=== PATIENT | male | born 1975 | race Caucasian/White ===

== ENCOUNTER 2017-07-14 15:59 | Inpatient (IN) ==
--- OUTSIDE RECORDS SUMMARY | 2017-07-14 16:25 | External Medical Summary | Referral Summary ---
:1975 Author Organization [facility], [facility] Address [address] [place] [address] [place] [id number] Care Team Providers Name Role Phone GriseldaEliot amador Sparkle Primary Care Physician Encounter VC Date(s): 02/23/16 - 02/23/16 [facility], [address] [place] [id number]- Discharge Diagnosis: Diarrhea Discharge Disposition: 01-Home or Self Care Attending Physician: Chaz Springer PA-C Admitting Physician: Chaz Springer PA-C Vital Signs Most recent to oldest [Reference Range]: 1 Temperature Tympanic [36.6-38.1 degC] 36.8 degC (02/23/16 5:58 PM) Peripheral Pulse Rate [60-100 bpm] 102 bpm *HI* (02/23/16 5:58 PM) Blood Pressure [90-140/60-90 mmHg] 144/78 mmHg *HI* (02/23/16 5:58 PM) SpO2 98 % (02/23/16 5:58 PM) Problem List Condition Effective Dates Status Health Status Informant Abdominal pain in male(Confirmed) Active Hydrocele unspecified(Confirmed) Active Obesity(Confirmed) Active patient Orchitis and epididymitis, Active unspecified(Confirmed) Allergies, Adverse Reactions, Alerts Substance Reaction Severity Status Bactrim Active penicillin Unknown Active sulfamethoxazole itching hives Active trimethoprim itching hives Active Medications atorvastatin Oral, Daily, 0 Refill(s) Start Date: 02/23/16 Status: OrderedEffexor XR 75 mg oral capsule, extended release 1 caps, Oral, Daily, # 30 caps, 0 Refill(s) Start Date: 07/29/13 Status: Orderedlisinopril 20 mg oral tablet 1 tabs, Oral, Daily, # 30 tabs, 0 Refill(s) Start Date: 07/29/13 Status: Ordered Results No data available for this section Immunizations Given and Recorded Vaccine Date Status Refusal Reason tetanus/diphth/pertuss (Tdap) adult/adol 04/17/09 Recorded Procedures No data available for this section Social History Social History Type Response Smoking Status Never smoker Assessment and Plan Extracted from: Title: Ambulatory Patient Education Author: Hetal Mckeon RN Date: Emergency Medicine Diarrhea Diarrhea is frequent loose and watery bowel movements. It can cause you to feel weak and dehydrated. Dehydration can cause you to become tired and thirsty , have a dry mouth, and have decreased urination that often is dark yellow. Diarrhea is a sign of another problem, most often an infection that will not last long. In most cases, diarrhea typically lasts 2 3 days. However, it can last longer if it is a sign of something more serious. It is important to treat your diarrhea as directed by your caregiver to lessen or prevent future episodes of diarrhea. CAUSES Some common causes include: Gastrointestinal infections caused by viruses, bacteria, or parasites. Food poisoning or food allergies. Certain medicines, such as antibiotics, chemotherapy, and laxatives. Artificial sweeteners and fructose. Digestive disorders. HOME CARE INSTRUCTIONS Ensure adequate fluid intake (hydration): Have 1 cup (8 oz) of fluid for each diarrhea episode. Avoid fluids that contain simple sugars or sports drinks, fruit juices, whole milk products, and so woo. Your urine should be clear or pale yellow if you are drinking enough fluids. Hydrate with an oral rehydration solution that you can purchase at pharmacies, retail stores, and online. You can prepar e an oral rehydration solution at home by mixing the following ingredients together: tsp table salt. tsp baking soda. tsp salt substitute containing potassium chloride. 1 tablespoons sugar. 1 L (34 oz) of water. Certain foods and beverages may increase the speed at which food moves through the gastrointestinal (GI) tract. These foods and beverages should be avoided and include: Caffeinated and alcoholic beverages. High-fiber foods, such as raw fruits and vegetables, nuts, seeds, and whole grain breads and cereals. Foods and beverages sweetened with sugar alcohols, such as xylitol, sorbitol, and mannitol. Some foods may be well tolerated and may help thicken stool including: Starchy foods, such as rice, toast, pasta, low-sugar cereal, oatmeal, grits, baked potatoes, crackers, and bagels. Bananas. Applesauce. Add probiotic-rich foods to help increase healthy bacteria in the GI tract, such as yogurt and fermented milk products. Wash your hands well after each diarrhea episode. Only take zakn-wei-zfggjss or prescription medicines as directed by your caregiver. Take a warm bath to relieve any burning or pain from frequent diarrhea episodes. SEEK IMMEDIATE MEDICAL CARE IF: You are unable to keep fluids down. You have persistent vomiting. You have blood in your stool, or your stools are black and tarry. You do not urinate in 68 hours, or there is only a small amount of very dark urine. You have abdominal pain that increases or localizes. You have weakness, dizziness, confusion, or light-headedness. You have a severe headache. Your diarrhea gets worse or does not get better. You have a fever or persistent symptoms for more than 23 days. You have a fever and your symptoms suddenly get worse. MAKE SURE YOU: Understand these instructions. Will watch your condition. Will get help right away if you are not doing well or get worse. This information is not intended to replace advice given to you by your health care provider. Make sure you discuss any questions you have with your health care provider. Document Released: 01/24/2003 Document Revised: 02/24/2015 Document Reviewed: 10/11/2012 [employer] Patient Education 2016 [employer] No follow up information was provided. Extracted from: Title: nausea diarrhea Author: Chaz Springer PA-C Date: 02/23/16 Assessment/Plan Abdominal pain in male Discussed acute abdomen;if he develops signs follow-up in ER. patient was given handouts. Recommend watchful waiting. Practice good hand hygiene.Adequate fluids. FU with PCP if not improving, worsening symptoms, or as needed. Questions were answered. Patient verbalized understanding. Patient left in stable condition. Diarrhea Recommended adequate fluid intake,Imodium [id number] mgmax dose 14 mg per 24 hours. If diarrhea persists 2-3 weeks or if blood in stool, dehydration, follow-up for reassessment. Handout on diarrheaprovided.
--- OUTSIDE RECORDS SUMMARY | 2017-07-14 16:25 | External Medical Summary | Referral Summary ---
:1975 Author Organization [facility], [facility] Address [address] [place] [address] [place] [id number] Care Team Providers Name Role Phone Griseldaperry Eliot Sparkle Primary Care Physician Encounter VC Date(s): 02/16/15 - 02/16/15 [facility], [address] [place] [id number] [place] Discharge Diagnosis: Headache Discharge Diagnosis: Nasal congestion Discharge Diagnosis: Acute URI Discharge Disposition: 01-Home or Self Care Attending Physician: Chaz Springer PA-C Admitting Physician: Chaz Springer PA-C Vital Signs Most recent to oldest [Reference Range]: 1 Temperature Tympanic [36.6-38.1 degC] 37.0 degC (02/16/15 2:51 PM) Apical Heart Rate [60-100 bpm] 96 bpm (02/16/15 2:51 PM) Blood Pressure [90-140/60-90 mmHg] 132/84 mmHg (02/16/15 2:51 PM) SpO2 99 % (02/16/15 2:51 PM) Problem List No data available for this section Allergies, Adverse Reactions, Alerts Substance Reaction Severity Status penicillin Unknown Active sulfamethoxazole itching hives Active trimethoprim itching hives Active Medications Effexor XR 75 mg oral capsule, extended release 1 caps, Oral, Daily, # 30 caps, 0 Refill(s) Start Date: 07/29/13 Status: Orderedlisinopril 20 mg oral tablet 1 tabs, Oral, Daily, # 30 tabs, 0 Refill(s) Start Date: 07/29/13 Status: OrderedpredniSONE 5 mg oral tablet 5 mg 1 tabs, Oral, Daily, X 5 days, # 5 tabs, 0 Refill(s), called to pharmacy ( Rx) Start Date: 02/16/15 Stop Date: 02/21/15 Status: Ordered Results No data available for this section Immunizations No data available for this section Procedures No data available for this section Social History Social History Type Response Smoking Status Never smoker Assessment and Plan Extracted from: Title: headache, sore throat Author: Chaz Springer PA-C Date: 02/16/15 Assessment/Plan Acute URI Work note was given. Recommend supportive care. Rest. Practice good hand hygiene. Increase fluids. Okay to use hcco-eep-[id number] cough and cold medication as needed. Tylenol/Ibuprofen as needed for fever or pain. FU with PCP if not improving, worsening symptoms, or as needed. Questions were answered. Patient verbalized understanding. Patient left in stable condition. Headache Toradol 60 mg IM. She was observed 15 minutes after the injection vital signs are stable and he was discharged. Nasal congestion [id number] 5 days. She is unable to take decongestants due to his hypertension. Orders: predniSONE, 5 mg 1 tabs, Oral, Daily, X 5 days, # 5 tabs, 0 Refill(s) , called to pharmacy (Rx)
[2017-07-14] MEDS ORDERED: MORPHINE SULFATE 2mg INJECTION IVP ONE ×2 (16:47→18:39)
[2017-07-14] MEDS ORDERED: METOCLOPRAMIDE 10mg/2ml INJECTION IVP ONE (16:47)
[2017-07-14] MEDS ORDERED: NS 1,000 ML IV ONE (16:48)
[2017-07-14] MEDS: SALINE FLUSH 10ml SYRINGE IVF PRN (17:09)
--- NOTE | 2017-07-14 17:27 | Emergency Department Report ---
Abdominal Pain HPI - General Chief Complaint: Abdominal Pain Stated Complaint: Right abdominal pain Source: patient Mode of arrival: ambulatory Limitations: no limitations - History of Present Illness HPI narrative: PT presents with a complaint of epigastric and RUQ pain that started about 2 days ago. PT has had normal eating habits. He did have an episode of vomiting yesterday. Denies diarrhea or known fever. He denies chest pain, diaphoresis, or SOA. Pain does not change with PO intake. No difficulty urinating MD complaint: abdominal pain Onset (ago): day(s) Consistency: constant Location: RUQ, epigastric Severity: moderate Quality: cramping, stabbing - Related Data Home Medications Medication Instructions Recorded Confirmed Venlafaxine [Effexor] 75 mg PO DAILY #0 02/05/16 07/14/17 Lisinopril [Zestril] 40 mg PO DAILY 07/14/17 07/14/17 Allergies Allergy/AdvReac Type Severity Reaction Status Date / Time Penicillins Allergy Unknown Verified 07/14/17 16:18 sulfamethoxazole Allergy Unknown Verified 07/14/17 16:18 trimethoprim Allergy Unknown Verified 07/14/17 16:18 Review of Systems All systems: reviewed and negative except as stated Constitutional: Reports: as per HPI Cardiovascular: Reports: as per HPI Gastrointestinal: Reports: as per HPI Genitourinary: Reports: as per HPI [facility] Patient Stated Medical History Hypertension Yes Depression Yes Clinic Medical History (Last Reviewed 02/16/17 @ 17:16 by RUEL Chandra) Depression (Chronic Medical) Anxiety (Chronic Medical) Hypertension (Chronic Medical) Surgical History: *None Family History: Family History (Last Reviewed 02/16/17 @ 17:16 by RUEL Chandra) Unknown Diabetes - Social History Smoking status: Never smoker second hand exposure: Yes Substance use type: does not use Alcohol intake: current Alcohol intake frequency: holidays/special occasions only Physical Exam - Limitations Limitations: no limitations - General General appearance: alert, in no apparent distress - Normal Exams: Head:: Normocephalic without trauma Chest/Respirations:: Clear all coughlin, with good airflow, and symmetry bilaterally Cardiovascular:: Regular rate and rhythm, without murmur or gallop, Pulses 2+ all extremities, capillary refill, <2 seconds all extremities Abdomen:: Bowel sounds positive (hypoactive), soft, non-tender Musculoskeletal:: No tenderness, or deformity noted, good range of motion, all extremities Integumentary:: No rashes Neurological:: Patient is alert, and oriented, cranial nerves, motor/sensory/ cerebellar, exams w/o gross deficits, to observation Psychiatric:: Patient exhibits, appropriate attention, emotion and affect Course Vital Signs Temperature 100.4 F 07/14/17 16:05 Pulse Rate 91 07/14/17 16:05 Respiratory Rate 18 07/14/17 16:05 Blood Pressure 170/93 H 07/14/17 16:05 Pulse Oximetry 99 07/14/17 16:05 Temperature 100.4 F 07/14/17 16:05 Pulse Rate 91 07/14/17 16:05 Respiratory Rate 20 07/14/17 17:11 Blood Pressure 170/93 H 07/14/17 16:05 Pulse Oximetry 99 07/14/17 16:05 Abdominal Pain - MDM Narrative Medical decision making narrative: PT WBC of 17 with mild shift, in addition to CT findings and assessment consistent with acute cholecystitis. Pt bailon improvement of pain with Morphine. Findings discussed with Dr Barriga who will admit. Pt agrees to treatment and plan. Dr Barriga at bedside. - Differential Diagnosis Differential diagnosis: Likely: abdominal pain, acute appendicitis, constipation , diverticulitis, gastroenteritis - Lab Data Result diagrams: 07/15/17 04:21 07/15/17 04:21 Lab Results 07/14/17 07/14/17 07/14/17 Range/Units 17:05 17:05 17:06 WBC 17.2 H (4.5-11.0) T/MM3 RBC 5.14 (4.50-5.90) M/MM3 Hgb 16.3 (13.5-17.5) GM/DL Hct 45.3 (41-53) % MCV 88.1 (80-100) UM3 MCH 31.7 (26-34) UUG MCHC 36.0 (31-37) GM/DL RDW Std Deviation 40.0 (36.9-50.2) FL Plt Count 251 (130-400) T/MM3 MPV 9.8 (9.4-12.4) UM3 Immature Gran % (Auto) Not performed Neut % (Auto) Not performed Lymph % (Auto) Not performed [place] % (Auto) Not performed Eos % (Auto) Not performed Baso % (Auto) Not performed Neut # (Auto) Not performed Lymph # (Auto) Not performed [place] # (Auto) Not performed Eos # (Auto) Not performed Baso # (Auto) Not performed Abs Immat Gran (auto) Not performed Turbidity < 20 (0-20) Sodium 144 (134-144) MEQ/L Potassium 3.6 (3.6-5) MEQ/L Chloride 102 (98-107) MEQ/L Carbon Dioxide 27 (22-30) MEQ/L Anion Gap 15 (5-15) meq/L BUN 11.0 (9-20) MG/DL Creatinine 0.8 (0.8-1.5) mg/dL GFR Calculation 107 BUN/Creatinine Ratio 14 (6-26) RATIO Glucose 151 H (75-110) MG/DL Calculated Osmolality 279 (261-280) MOSM/KG Calcium 9.4 (8.4-10.2) MG/DL Total Bilirubin 0.90 (0.20-1.30) MG/DL Icterus Index < 2 (0-7) AST 29 (17-59) U/L ALT 36 (1-50) U/L Alkaline Phosphatase 81 (38-126) U/L Total Protein 8.1 (6.3-8.2) g/dL Albumin 4.8 (3.5-5.0) g/dL Globulin 3.3 (2.4-3.6) G/DL Albumin/Globulin Ratio 1.5 (1.1-2.2) RATIO Specimen Hemolysis < 15 (0-25) Ur Collection Type Urine, void-cc/notcc Urine Color Yellow (YELLOW) Urine Clarity Clear Urine pH 6.0 (5.0-8.0) Ur Specific [place] >=1.030 H (1.015-1.025) Urine Protein Negative (NEGATIVE) Urine Glucose (UA) Trace A (NEGATIVE) Urine Ketones Negative (NEGATIVE) Urine Occult Blood Negative (NEGATIVE) Urine Nitrate Negative (NEGATIVE) Urine Bilirubin Negative (NEGATIVE) Urine Urobilinogen 0.2 (NORMAL) EU/DL Ur Leukocyte Esterase Negative (NEGATIVE) Urinalysis Comment Microscopic not ind. - Radiology Data Attestation: I reviewed the patient's radiology results. (acute cholecystitis and suggestion of partial small bowel obstruction) Disposition Clinical Impression: Acute cholecystitis Disposition: 02 To [facility] Acute Care Condition: Improved Time of Disposition: 19:36 - Seen By: midlevel
[2017-07-14] MEDS ORDERED: SALINE FLUSH 10ml SYRINGE ONE (17:31)
[2017-07-14] MEDS ORDERED: IOHEXOL 300mg/ml 100ml INJECTION ONE (17:31)
[2017-07-14 20:18] VITALS: BMI 34.9
[2017-07-14] MEDS ORDERED: ONDANSETRON 4 MG/2 ML INJECTION IVP PRN (20:34)
[2017-07-14] MEDS ORDERED: PROMETHAZINE 25 MG INJECTION IVP PRN (20:34)
[2017-07-14] MEDS: MORPHINE SULFATE 10mg/ml INJECTION IV PRN (20:39)
[2017-07-14] MEDS: D5-1/2NS with KCL 20mEq 1,000 ML IV SCH (20:40)
[2017-07-14] MEDS: ERTAPENEM 1 G in NS 100 ML IV SCH (21:10)
[2017-07-15] MEDS: MORPHINE SULFATE 10mg/ml INJECTION IV PRN ×2 (02:44→10:25)
[2017-07-15] MEDS: D5-1/2NS with KCL 20mEq 1,000 ML IV SCH ×2 (04:10→18:23)
--- NOTE | 2017-07-15 06:25 | History and Physical ---
HISTORY OF PRESENT ILLNESS This patient is 41 years old. This patient developed the onset of some epigastric and right upper quadrant abdominal pain on the morning of 2017. This pain did localize more and more to the right upper quadrant of the abdomen as the day progressed. The patient had some nausea and vomiting associated with this pain on 07/13/2017. The patient had no diarrhea. The right upper quadrant abdominal pain for the patient was worse on 2017. He has had no further nausea or vomiting on 07/14/2017. He has had no diarrhea. The patient did last eat some food at 3:00 p.m. on 07/14/2017. The patient came to [facility] Emergency Room late on the afternoon or early on the evening of 07/14/2017 for evaluation because the right upper quadrant abdominal pain was persisting. The pain was localized to the right upper quadrant of the abdomen. The patient did have a CT scan of the abdomen and pelvis performed at [facility] Emergency Room. This does show a gallstone at the proximal gallbladder. There is trace of pericholecystic stranding which could represent some early acute cholecystitis. There was no bile duct dilation demonstrated anywhere. There was no gallbladder wall thickening. The radiologist did see a few mildly distended small bowel loops at the midabdomen suggesting partial small bowel obstruction. The patient was also found to have a leukocytosis at the emergency room with a white blood cell count of 17,200 along with a left shift of the differential. It was thought the patient might have acute cholecystitis. The patient is being admitted to [facility] at this time for further evaluation and treatment. PAST MEDICAL HISTORY Previous Operations: None. Other Current Medical Problems: 1. Hypertension. 2. Depression. CURRENT MEDICATIONS 1. Lisinopril 40 mg one p.o. daily. 2. Effexor 75 mg one p.o. daily. ALLERGY HISTORY 1. The patient states that he is allergic to penicillin. He does not know what type of reaction he had to penicillin. He has just been told since he was a young child that he had some type of allergy to penicillin. 2. The patient states that Bactrim causes hives and itching. SOCIAL HISTORY The patient does not smoke cigarettes. The patient lives in [place], [place]. The patient is . PHYSICAL EXAMINATION VITAL SIGNS: Temperature is 101.2 degrees Fahrenheit oral. Pulse is 93. Respiratory rate is 18. Blood pressure is 152/89. Oxygen saturation is 95% on room air. Height is 1.73 meters. Weight 103.9 kg. BMI is 34.8 kg/m2. HEAD, EYES, EARS, NOSE AND THROAT: No abnormalities noted. NECK: No neck masses. CHEST: Lung sounds are clear. HEART: Regular rhythm. No murmurs. ABDOMEN: The patient does have well-localized right subcostal abdominal tenderness. The tenderness seems moderate to severe. The abdomen is soft. There are no old incision scars. RECTUM: Exam deferred. EXTREMITIES: No abnormalities noted.. LABORATORY DATA White blood cell count is 17,200 with 82% neutrophils and 13% lymphocytes. There are no bands. Hemoglobin is 16.3. Hematocrit is 45.3. Liver function tests are all normal. Lipase is normal. Serum electrolytes are normal. IMAGING DATA The patient did undergo a CT scan of the abdomen and pelvis on 07/14/2017. This does show a 2.5 mm calcified gallstone in the region of the proximal gallbladder. There is no gallbladder wall thickening. There is a trace of pericholecystic stranding which could represent early acute cholecystitis. There is no biliary ductal dilation anywhere. The CT scan does show a few mildly distended small bowel loops at the midabdomen measuring up to 2.8 cm in caliber suggesting partial small bowel obstruction. IMPRESSION 1. Probable acute cholecystitis and cholelithiasis. 2. Hypertension. 3. Depression. PATIENT EDUCATION I did inform the patient and his and his mother of the nature of treatment for acute cholecystitis and cholelithiasis. I did explain to them the nature of a multiport robotic laparoscopic cholecystectomy operation. Expected benefits of the operation were reviewed. Alternatives were reviewed including medical treatment with antibiotic treatment alone. Potential risks and complications were reviewed including anesthetic risk, bleeding, infection, poor wound healing, bile leak and injury to intraabdominal structures such as the liver, the common duct, the duodenum and loops of large and small intestine. The patient and his family were informed that any laparoscopic cholecystectomy operation might need to be converted over to an open laparotomy with cholecystectomy operation. Questions were solicited from the patient. The patient does appear understand. He does wish to proceed. PLAN Admit patient to [facility] at this time. The patient will be kept n.p.o. The patient will be given intravenous fluids. The patient will be given intravenous antibiotics. The patient will be given analgesics and antiemetics intravenously to provide comfort. After the patient has been n.p.o. for an appropriate period of time, he will go the operating room to undergo multiport robotic laparoscopic cholecystectomy for treatment of acute cholecystitis and cholelithiasis. MANNIE
--- NOTE | 2017-07-15 07:35 | CT Scan Report ---
Indication: epigastric and RUQ pain, low grade temp PROCEDURE: CT abdomen pelvis w con: Encounter: Initial Comparison: None Technique: Axial CT images were performed through the abdomen and pelvis after the administration of intravenous contrast. Coronal and sagittal two-dimensional reformats. Automated Exposure Control and Iterative Reconstruction dose reducing techniques were utilized. Contrast: Omnipaque 300 95 mL Findings: Mild atelectasis in the right lower lobe. Fatty infiltration of the liver without enhancing mass or bile duct dilatation. The gallbladder is distended with some stranding of the adjacent fat and a gallstone seen in the gallbladder neck region. The spleen, pancreas and adrenal glands are within normal limits. Bilateral renal cysts. No abdominal or pelvic adenopathy. Bladder is normal. No free fluid or free air. There are fecalized loops of borderline dilated small bowel with central abdomen that could represent a partial small bowel obstruction. The appendix is normal. Bone windows show no acute findings. Impression: 1. Possible acute cholecystitis. Recommend ultrasound for further evaluation. 2. Possible partial small bowel obstruction versus slow motility. There is a preliminary report by [facility]. .
[2017-07-15] MEDS: ERTAPENEM 1 G in NS 100 ML IV SCH (08:35)
[2017-07-15] MEDS ORDERED: BUPIVACAINE 0.25% (2.5mg/ml) PF 30ml INJECTION ONE (09:18)
[2017-07-15] MEDS ORDERED: INDOCYANINE GREEN 25mg INJECTION ONE (09:18)
[2017-07-15] MEDS ORDERED: SALINE FLUSH 10ml SYRINGE ONE (09:19)
[2017-07-15] MEDS ORDERED: LR 1,000 ML IV SCH (12:00)
[2017-07-15] MEDS: SALINE FLUSH 10ml SYRINGE IVF PRN (12:25)
[2017-07-15] MEDS ORDERED: BUPIVACAINE 0.25% (2.5mg/ml) PF 30ml INJECTION ID ONE (12:40)
[2017-07-15] MEDS ORDERED: SALINE FLUSH 10ml SYRINGE IV ONE (12:40)
[2017-07-15] MEDS ORDERED: INDOCYANINE GREEN 25mg INJECTION IVP PRN (12:40)
--- NOTE | 2017-07-15 13:04 | Anesthesia Preoperative Report ---
Anesthesia Preoperative Record - Date and Time Date: 07/15/17 Preoperative Diagnosis: Right abdominal pain Proposed Procedure: Robot Lap Choley NPO Since Date: 07/15/17 NPO Since Time: 00:00 Allergies/Adverse Reactions: Allergies Allergy/AdvReac Type Severity Reaction Status Date / Time Penicillins Allergy Unknown Verified 07/14/17 16:18 sulfamethoxazole Allergy Unknown Verified 07/14/17 16:18 trimethoprim Allergy Unknown Verified 07/14/17 16:18 - Vital Signs Vital Signs: Temperature 102.4 F H 07/15/17 07:55 Pulse Rate 98 07/15/17 12:17 Respiratory Rate 18 07/15/17 10:25 Blood Pressure 149/93 H 07/15/17 07:55 Pulse Oximetry 92 07/15/17 07:55 Height and Weight: Height 5 ft 8 in Weight 103.5 kg Body Mass Index 34.9 - Medications Inpatient Medications: Current Medications Ertapenem 1 g/ Sodium Chloride 100 mls @ 200 mls/hr IV DAILY [facility] Last Infusion: 07/15/17 09:08 Dose: Infused Potassium Chloride/Dextrose/Sod Cl (D5-1/2ns With Kcl 20meq Premix) 1,000 mls @ 125 mls/hr IV .Q8H [facility] Last Infusion: 07/15/17 12:00 Dose: 0 mls/hr Lactated Ringer's (Lactated Ringers) 1,000 mls @ 50 mls/hr IV .Q20H [facility] Last Admin: 07/15/17 12:24 Dose: 50 mls/hr Indocyanine Green (Ic-Green) 5 mg IVP PRN PRN Morphine Sulfate (Morphine Sulfate Inj) 2 - 5 mg IV Q1H PRN PRN Reason: Pain Last Admin: 07/15/17 10:25 Dose: 5 mg Ondansetron HCl (Zofran) 4 - 8 mg IVP Q6H PRN PRN Reason: Nausea &/or vomiting Promethazine HCl (Phenergan Inj) 12.5 - 25 mg IVP Q6H PRN PRN Reason: Nausea &/or vomiting Sodium Chloride (Iv Flush) 10 - 80 ml IVF PRN PRN PRN Reason: Flushing Last Admin: 07/15/17 12:25 Dose: 10 ml Home Medications: Home Medications Medication Instructions Recorded Confirmed Type Venlafaxine [Effexor] 75 mg PO DAILY #0 02/05/16 07/14/17 History Lisinopril [Zestril] 40 mg PO DAILY 07/14/17 07/14/17 History Is Patient on Beta Radha?: No - Medical History Respiratory: Reports: Sleep Apnea (uses CPAP at home) Cardiovascular: Reports: Hypertension Gastrointestional: Reports: Morbid Obesity Neuro/Musculoskeletal: Reports: Depression Renal/Endocrine: DENIES: Diabetes Mellitus Type 1, Diabetes Mellitus Type 2, Renal Failure, Dialysis, Thyroid Disease, Weight Loss, Weight Gain, Other Other History: DENIES: Anesthesia Reactions, Now, Blood Transfusions, Chemotherapy , Cancer, Hemophilia, Malignant Hyperthermia, Sickle Cell Disease, Other - Surgical History Anesthesia Reactions: None Hx Family Anesthesia Reaction: No History of Motion Sickness: No - Social History Smoking Status: Never smoker Second Hand Exposure: Yes Substance Use Type: does not use Alcohol Intake: current Alcohol Intake Frequency: holidays/special occasions only - Pertinent Findings Laboratory: CBC and BMP 07/15/17 04:21 07/15/17 04:21 BMP 07/15/17 04:21 Sodium 140 Potassium 3.9 Chloride 103 Carbon Dioxide 25 BUN 11.0 Creatinine 0.8 Glucose 169 H Calcium 8.5 D Liver Function 07/15/17 Range/Units 04:21 Total Bilirubin 1.20 (0.20-1.30) MG/DL AST 26 (17-59) U/L ALT 29 (1-50) U/L Alkaline Phosphatase 65 (38-126) U/L Albumin 4.1 (3.5-5.0) g/dL EKG: Sinus Rhythm - Physical Exam Respiratory Exam: Present: lungs clear, bilateral breath sounds equal Cardiovascular Exam: Present: regular rate and rhythm (mildly tachycardic), no murmur - Airway Assessment Mallampati Score: III TMD: 3 Fingerbreadths Neck Extension: poor Overall Assessment: may be difficult intubation - ASA ASA Score: 2 - Plan Anesthesia: General Inhalation Gases - Discussion Discussion: Discussed risks/options/alternatives of anesthesia and questions answered. Patient consents. Nursing pain assessment noted. Present for Discussion: spouse Attestation Statement: Prior to the delivery of any anesthetic medication, I examined the patient, developed the plan, obtained the patient's consent and discussed the risk and benefits of the procedure with the patient/guardian. - Additional Information Seen by Anesthesia: Yes
[2017-07-15] MEDS ORDERED: DiphenhydrAMINE 50 MG/ML INJECTION ONE (13:11)
[2017-07-15] MEDS ORDERED: PROPOFOL 20 ML ONE ×3 (13:11→14:47)
[2017-07-15] MEDS ORDERED: ROCURONIUM 50 MG/5 ML INJECTION IVP ONE ×2 (13:11→14:39)
[2017-07-15] MEDS ORDERED: DEXAMETHASONE 4 MG/ML INJECTION ONE (13:11)
[2017-07-15] MEDS ORDERED: KETAMINE 500 MG/10 ML INJECTION ONE (13:12)
[2017-07-15] MEDS ORDERED: FentaNYL 250 MCG/5 ML INJECTION ONE ×2 (13:12→15:30)
[2017-07-15] MEDS ORDERED: MIDAZOLAM 2mg/2ml INJECTION ONE (13:15)
[2017-07-15] MEDS ORDERED: ACETAMINOPHEN IV 1,000 MG/100 ML VIAL IV ONE (13:47)
--- NOTE | 2017-07-15 15:36 | General Surgery Procedure Note ---
Date of Procedure: 07/15/17 Surgeon: Nithya Postoperative Diagnosis: Acute cholecystitis Procedure: Robotic laparoscopic cholecystectomy. Estimated Blood Loss: See Anesthesia Record.
[2017-07-15] MEDS ORDERED: HYDROMORPHONE 2 MG/ML INJECTION IVP PRN (15:44)
[2017-07-15] MEDS ORDERED: FentaNYL 100 MCG/2 ML INJECTION IVP PRN (15:44)
[2017-07-15] MEDS ORDERED: ONDANSETRON 4 MG/2 ML INJECTION IVP PRN (15:44)
--- NOTE | 2017-07-15 16:20 | Anesthesia Postoperative Note ---
- Date and Time Date: 07/15/17 Time: 16:20 - Status Patient Participated in Evaluation: Patient Participated in Person Vital Signs: Temperature 98.8 F 07/15/17 15:42 Pulse Rate 92 07/15/17 16:15 Respiratory Rate 16 07/15/17 16:15 Blood Pressure 139/77 07/15/17 16:15 Pulse Oximetry 96 07/15/17 16:15 Respiratory Function: Airway Patent Cardiovascular Function: Regular Pulse EKG: Sinus Rhythm Mental Status: Alert and Oriented Pain Intensity: 0 Hydration: IV Infusing Complications During Recover: None Apparent - Follow-Up Instructions Instructions: Per Surgeon
[2017-07-15] MEDS ORDERED: ACETAMINOPHEN 500 MG TABLET PO PRN (18:26)
[2017-07-15] MEDS: Oxycodone *IR* 5 MG TABLET PO PRN ×2 (19:32→20:03)
[2017-07-16] MEDS: D5-1/2NS with KCL 20mEq 1,000 ML IV SCH ×3 (02:27→20:09)
[2017-07-16] MEDS: Oxycodone *IR* 5 MG TABLET PO PRN (02:56)
--- NOTE | 2017-07-16 08:10 | Operative Note ---
DATE OF OPERATION 07/15/2017 PREOPERATIVE DIAGNOSIS Acute cholecystitis and cholelithiasis. POSTOPERATIVE DIAGNOSIS Acute cholecystitis and cholelithiasis. OPERATION Multiport robotic laparoscopic cholecystectomy. SURGEON Dr. Barriga ANESTHESIA General ASA CLASS 2 FINDINGS The gallbladder did appear to be acutely inflamed. The gallbladder wall was quite thickened. There was a large amount of edema around the gallbladder. The gallbladder appeared to contain gallstones. The cystic duct was not dilated. The liver appeared normal. The gallbladder was quite distended. There was some inflammatory exudate around the gallbladder. The greater omentum was adherent to the outside surface of the gallbladder. DESCRIPTION OF OPERATION The patient did have injectable indocyanine green dye administered intravenously preoperatively. The patient was placed in supine position on the operating table. General anesthesia was satisfactorily induced. The abdomen was prepped and draped in routine sterile fashion. Bupivacaine 0.25% without epinephrine was infiltrated into the skin and underlying tissue at an infraumbilical incision site. An infraumbilical incision was made. A Veress needle was inserted into the peritoneal cavity through the incision. Pneumoperitoneum was established with carbon dioxide. The Veress needle was removed. A 12-mm camera port was placed at the infraumbilical incision. A 12 mm 30-degree da Sam laparoscope was inserted at the infraumbilical port. The patient was placed in reverse Trendelenburg position. The right side of the table was tilted up. The skin and underlying structures at the abdominal wall were infiltrated with bupivacaine at a port site at the left upper quadrant of the abdomen at the midclavicular line. An incision was made at this site and an 8 mm da Sam instrument port was placed at this incision. The skin and underlying abdominal wall structures were infiltrated with bupivacaine at another incision site at the left side of the abdomen. An incision was made at this site and an [employer] licensed investment sales assistant port was placed at this incision. The skin and underlying abdominal wall structures were infiltrated with bupivacaine at a port site at the right upper quadrant of the abdomen. An incision was made at this site and an 8 mm da Sam instrument port was placed at this incision. The skin and underlying abdominal wall structures were then infiltrated with bupivacaine at another port site at a more lateral location at the right side of the abdomen. An incision was made at this site and another 8 mm da Sam instrument port was placed at this incision. The da Sam robotic system was brought up to the operating table. The da Sam robotic system was docked to the camera port and the instrument ports. The da Sam 12 mm 30-degree laparoscope was inserted at the camera port. A [place] bipolar forceps was inserted at the 8 mm instrument port at the left upper quadrant of the abdomen associated with instrument arm #1. A Cadiere forceps was inserted at the 8 mm instrument port at the right upper quadrant of the abdomen associated with instrument arm #2. A ProGrasp forceps was inserted at the 8 mm instrument report at the right lateral location at the abdomen associated with instrument arm #3. These instruments were all placed into a position adjacent to the gallbladder. An aspirating cannula was inserted at one of the 8 mm instrument ports and the aspirating cannula and syringe were used to aspirate bile from the gallbladder which was quite distended. This bile which was aspirated from the gallbladder was submitted for bacterial culture and sensitivity studies. This did decompress the gallbladder so that it could be grasped more easily with instruments. The surgeon then went from the patient's side at the operating table to the surgeon console. The ProGrasp forceps with instrument arm #3 was used to grasp the fundus of the gallbladder and elevate the gallbladder and reflect the liver up superiorly towards the right diaphragm. The infundibulum of the gallbladder was grasped with Cadiere forceps with instrument arm #2. Dissection was performed at the infundibulum of the gallbladder to dissect adipose tissue away from the infundibulum of the gallbladder. Dissection was then performed at the hepatocystic triangle. The infundibulum of the gallbladder was able to be grasped with the Cadiere forceps with instrument #2 at this time. The cystic duct was dissected out and identified. The cystic artery was dissected out and identified. An attempt was made to demonstrate the cystic duct with Firefly fluorescence imaging at this time, but the Firefly fluorescence imaging did not appear to be working. Dissection was continued at the hepatocystic triangle until the only two structures remaining were the cystic duct and the cystic artery. A critical view of safety was achieved at this time. The hepatocystic triangle was cleared of all the fatty and fibrous tissue until the only two structures remaining were the cystic duct and the cystic artery. Two of the Hem-o-tomi clips were applied to the cystic artery. The cystic artery was divided between the Hem-o-tomi clips with the monopolar curved scissors. Three of the Hem-o-tomi clips were then applied to the cystic duct at the junction of the cystic duct and the gallbladder. The cystic duct was divided between the Hem-o-tomi clips with the curved dissecting scissors. Two of the Hem-o-tomi clips were left in place on the cystic duct stump. The monopolar curved scissors was then used to dissect the gallbladder out of the gallbladder bed. Tissue was coagulated with the monopolar curved scissors as the gallbladder was being dissected out the gallbladder bed to maintain hemostasis. The gallbladder was completely dissected out of the gallbladder bed. The gallbladder was placed in a position in the peritoneal cavity along the margin of the liver. The instruments were removed from the instrument ports. The da Sam laparoscope was removed from the camera port. The da Sam robotic system was undocked from the ports. The surgeon left the surgeon console and returned back to the side of the patient at the operating table. The da Sam 8.5 mm 30-degree laparoscope was inserted at one of the right-sided da Sam instrument ports. The specimen retrieval pouch was inserted at the camera port. The gallbladder was placed in the specimen retrieval pouch. The specimen retrieval pouch containing the gallbladder was brought out through the infraumbilical incision. The gallbladder was submitted as a specimen for study by the pathologist. The instrument ports were all removed. Carbon dioxide was removed from the peritoneal cavity by desufflation. The fascial layer of the infraumbilical incision was closed with a series of simple interrupted stitches using 0 Vicryl suture. Skin margins were then closed at all the incisions with subcuticular stitches using 4-0 Vicryl suture. Benzoin and one-fourth inch wide Steri- Strips were applied to the incisions. Band-Aids and sterile dressings were applied to the incisions. The patient tolerated the operation well. The patient was transferred from the operating room to the recovery room in satisfactory condition. MANNIE
[2017-07-16] MEDS: VENLAFAXINE 75 MG TABLET PO SCH (08:45)
[2017-07-16] MEDS: LISINOPRIL 40 MG TABLET PO SCH (08:45)
[2017-07-16] MEDS: ERTAPENEM 1 G in NS 100 ML IV SCH (08:45)
[2017-07-16] MEDS: IBUPROFEN 200 MG TABLET PO PRN (08:51)
--- NOTE | 2017-07-16 09:50 | XRay Report ---
Indication: possible partial small bowel obstruction PROCEDURE: XR abdomen 2V: Encounter: Initial Comparison: CT abdomen and pelvis dated July 14, 2017 Findings: Dilated small bowel loops are seen in the central abdomen with air-fluid levels. Small bowel dilatation up to 4.2 cm in diameter. There is scattered colonic gas and stool present to the level of the rectum. Impression: Dilated small bowel could represent ileus or partial small bowel obstruction. .
--- NOTE | 2017-07-16 18:47 | Progress Note ---
DATE 07/16/2017 POSTOP DAY #1 HISTORY The patient states he has been tolerating the clear liquid diet with toast and crackers without difficulty. He is having no nausea or vomiting. He has been passing some flatus today. The patient does have the usual postoperative incisional pain. The patient has been receiving intravenous Invanz since before the operation. PHYSICAL EXAMINATION VITAL SIGNS: Temperature was 100.4 degrees Fahrenheit axillary this morning. Pulse is 100. Respiratory rate is 16. Blood pressure is 132/78. Oxygen saturation is 94% on room air. ABDOMEN: Band-Aids and dressings were left in place at the abdominal incisions at this time. LABORATORY DATA White blood cell count is 15,900 with 4 bands today. Hemoglobin is 14.1. Hematocrit is 40.7. IMAGING DATA KUB and upright abdominal x-rays were performed today. They do show dilated small bowel loops in the central abdomen with air-fluid levels. The small bowel dilation is up to 4.2 cm in diameter. There is also gas throughout the colon all the way down to the level of the rectum. The impression by the radiologist was that the patient has dilated small bowel which could represent ileus or partial small-bowel obstruction. IMPRESSION 1. Doing well overall following multiport robotic laparoscopic cholecystectomy on 07/15/2017 for treatment of acute cholecystitis and cholelithiasis. 2. Possible partial small-bowel obstruction demonstrated on preoperative 2017 CT scan of the abdomen and pelvis at the time of admission to the hospital. 3. Dilated small bowel which could represent ileus or partial small-bowel obstruction demonstrated on KUB and upright abdominal x-rays performed today. PLAN 1. Continue intravenous Invanz which the patient has been receiving since the time of admission to the hospital. 2. Continue sequential compression devices for deep venous thrombosis prophylaxis. 3. Encourage patient to ambulate in the halls today. 4. Continue clear liquid diet with toast and crackers at this time. 5. Recheck white blood cell count tomorrow. 6. Recheck KUB and upright abdominal x-rays tomorrow. 7. Consider having the patient undergo a small bowel follow-through x-ray series tomorrow to make sure that the dilated small bowel is all just due to postoperative ileus associated with acute cholecystitis and not due to any partial small-bowel obstruction. 8. Start patient on Lovenox for deep venous thrombosis prophylaxis. MTDD
[2017-07-17] MEDS: D5-1/2NS with KCL 20mEq 1,000 ML IV SCH ×3 (04:22→18:14)
[2017-07-17] MEDS ORDERED: DIATRIZOATE MEGLUMINE/SOD. (66%/10%) 120ml SOLN ONE (07:46)
[2017-07-17] MEDS: ENOXAPARIN 40 MG/0.4 ML INJECTION SQ SCH (08:47)
[2017-07-17] MEDS: LISINOPRIL 40 MG TABLET PO SCH (08:48)
[2017-07-17] MEDS: IBUPROFEN 200 MG TABLET PO PRN ×2 (08:48→23:22)
[2017-07-17] MEDS: ERTAPENEM 1 G in NS 100 ML IV SCH (08:48)
[2017-07-17] MEDS: VENLAFAXINE 75 MG TABLET PO SCH (08:48)
--- NOTE | 2017-07-17 10:12 | XRay Report ---
Indication: Ileus PROCEDURE: XR abdomen 2V: Encounter: Initial Comparison: July 16, 2017 Findings: Trace free air under the right hemidiaphragm due to the recent surgery. Dilated small bowel loops again noted in the central abdomen measuring up to 5 cm in diameter with scattered colonic gas. The overall degree of small bowel dilatation is similar to the prior study. Air-fluid levels have decreased. Impression: Findings most consistent with a postoperative ileus. .
--- NOTE | 2017-07-17 12:36 | XRay Report ---
Indication: possible partial small bowel obstruction PROCEDURE: XR small bowel follow through: Encounter: Initial Comparison: KUB from earlier today Findings: Water-soluble oral contrast was administered. This demonstrated extremely rapid transit throughout the small bowel reaching the left colon by the time the immediate postcontrast images were obtained. Small bowel dilatation has improved on this study. Small bowel measures 3 cm in maximal diameter in the mid to lower central abdomen. Contrast reaches the level of the rectum by 30 min. after administration. Impression: Very rapid intestinal transit. No evidence of ileus or small bowel obstruction. .
--- NOTE | 2017-07-17 14:56 | Progress Note ---
DATE 07/17/2017 POSTOP DAY #2 HISTORY The patient is tolerating the clear liquid diet with toast and crackers better today. He had a large bowel movement today. He is having no nausea or vomiting. His postoperative incisional pain is improving. He continues to receive some intravenous Invanz. LABORATORY DATA VITAL SIGNS: Temperature is 98.5 degrees Fahrenheit oral. Pulse is 83. Respiratory rate is 16. Blood pressure is 147/92. Oxygen saturation is 91% on room air. ABDOMEN: All of the abdominal incisions look good. LABORATORY DATA White blood cell count is 11,900 with no bands today. Hemoglobin is 14.3. Hematocrit is 41.1. IMAGING DATA The patient did have KUB and upright abdominal x-rays performed this morning. These x-rays show dilated small bowel loops in the central abdomen measuring up to 5 cm in diameter with some scattered colon gas. The overall degree of small bowel dilation is similar to the KUB and upright abdominal x-rays performed yesterday. Air-fluid levels have decreased. The radiologist thought the findings were most consistent with postoperative ileus. Because of the preoperative CT scan findings of a partial small bowel obstruction, the patient did undergo small bowel follow-through x-ray series today. The small bowel follow-through x-ray series shows very rapid intestinal transit. The oral contrast did reach the level of the rectum by 30 minutes after administration. There was no evidence of any small bowel obstruction on these small bowel follow-through x-rays. There was also no evidence of any ileus on the small bowel follow-through x-ray series. IMPRESSION 1. Doing well overall following multiport robotic laparoscopic cholecystectomy on 07/15/2017 for treatment of acute cholecystitis and cholelithiasis. 2. No evidence of any partial small bowel obstruction on small bowel follow- through x-ray series performed today. PLAN 1. Continue intravenous Invanz. 2. Recheck white blood cell count again tomorrow. 3. Continue sequential compression devices and Lovenox for deep venous thrombosis prophylaxis. 4. Advance diet as tolerated. 5. Continue ambulation. 6. Decrease rate of administration of intravenous fluids. MTDD
[2017-07-18] MEDS: ERTAPENEM 1 G in NS 100 ML IV SCH (08:34)
[2017-07-18] MEDS: LISINOPRIL 40 MG TABLET PO SCH (08:35)
[2017-07-18] MEDS: VENLAFAXINE 75 MG TABLET PO SCH (08:35)
[2017-07-18] MEDS: ENOXAPARIN 40 MG/0.4 ML INJECTION SQ SCH (08:35)
[2017-07-18] MEDS: SALINE FLUSH 10ml SYRINGE IVF PRN (08:35)
[2017-07-18] MEDS: D5-1/2NS with KCL 20mEq 1,000 ML IV SCH (08:47)
[2017-07-18 12:13] VITALS: BP 155/91; PULSE 83; RESP 16; TEMP 98.1; O2SAT 94
--- NOTE | 2017-07-18 12:26 | Progress Note ---
DATE 07/18/2017 POSTOP DAY #3 HISTORY The patient is tolerating a regular diet. He is up ambulating well. He is using ibuprofen for pain control. He has been receiving intravenous Invanz. He is doing well overall. PHYSICAL EXAMINATION VITAL SIGNS: Temperature is 98.3 degrees Fahrenheit oral. Pulse is 75. Respiratory rate is 18. Blood pressure is 140/90. Oxygen saturation is 97% on room air. ABDOMEN: All the abdominal incisions look good. LABORATORY DATA White blood cell count is 8900 with no bands today. Hemoglobin is 13.2. Hematocrit is 38.4. IMPRESSION Doing well following multiport robotic laparoscopic cholecystectomy on 2017. PLAN Dismiss patient from [facility] today. DISCHARGE MEDICATIONS Resume medications which the patient was taking prior to admission to the hospital. MANNIE
--- NOTE | 2017-07-19 14:35 | Discharge Summary ---
DISCHARGE DIAGNOSES 1. Acute and chronic cholecystitis. 2. Hypertension. 3. Depression. OPERATION Multiport robotic laparoscopic cholecystectomy on 07/15/2017. HOSPITAL COURSE This patient was admitted to [facility] on 07/14/2017. History and physical examination findings at the time of admission to the hospital can be found in the dictated admission history and physical examination report in the chart. The patient was admitted from the emergency room. The patient did have right upper quadrant abdominal pain at the time of admission to the hospital. White blood cell count at the emergency room was 17,200 with 82% neutrophils and 13% lymphocytes. There were no bands. Hemoglobin was 16.3. Hematocrit was 45.3. Liver function tests were all normal. Lipase was normal. The patient did undergo a CT scan of the abdomen and pelvis on 07/14/2017 at the time of emergency room evaluation. This did show a 2.5-mm calcified gallstone in the region of the proximal gallbladder. There was no gallbladder wall thickening. There was a trace of pericholecystic stranding which was thought to represent possible early acute cholecystitis. There was no biliary ductal dilation anywhere. The CT scan did show a few mildly distended small bowel loops at the mid abdomen measuring up to 2.8 cm in caliber suggesting a partial small-bowel obstruction. The patient was thought at the time of admission to the hospital to have acute cholecystitis and cholelithiasis. Dr. Barriga did admit the patient to [facility] from the emergency room on 2017. The main admission diagnosis at this time was probable acute cholecystitis and cholelithiasis. The patient was also known at the time of admission to the hospital to have some chronic medical problems including hypertension and depression. The patient was admitted to the hospital on the evening of 07/14/2017. The patient had eaten some food at 3 p.m. on 2017. The patient was kept n.p.o. following the admission to the hospital. The patient was given intravenous fluids. The patient was given intravenous antibiotics. The patient was started on treatment with Invanz given intravenously. The patient was given analgesics and antiemetics to provide patient comfort. The patient continued to have right lower quadrant abdominal pain on 2017. White blood cell count was 19,100 with 4 bands on the morning of 2017. Hemoglobin was 15.4. Hematocrit was 43.4. Liver function tests remained normal on the morning of 07/15/2017. Dr. Barriga did review the CT scan findings with Dr. Morgan Ch on the morning of 07/15/2017. Dr. Ch did think that the gallbladder was distended with some stranding of the adjacent fat suggesting acute cholecystitis. Dr. Ch did see a gallstone in the gallbladder neck region. Dr. Ch also thought that the patient might have partial small-bowel obstruction. There were fecalized loops of borderline dilated small bowel in the central abdomen that were thought to possibly represent partial small-bowel obstruction. The appendix appeared normal. Dr. Barriga did think that the patient had acute cholecystitis and cholelithiasis. The patient did go to the operating room on 07/15/2017. The patient did undergo multiport robotic laparoscopic cholecystectomy performed by Dr. Barriga. The postoperative diagnosis was acute cholecystitis and cholelithiasis. Details of operative findings can be found in the dictated operative report in the chart. The patient did tolerate the operation on 07/15/2017 without any difficulty. Invanz was continued postoperatively on 07/15/2017. The patient was allowed to have a clear liquid diet with toast and crackers postoperatively. Sequential compression devices were used during the operation and postoperatively for deep venous thrombosis prophylaxis. On the first postoperative day, the patient was tolerating the clear liquid diet with toast and crackers without difficulty. He was having no nausea or vomiting. He had been passing some flatus. The patient did have the usual postoperative incisional pain. He was receiving intravenous Invanz. Temperature was 100.4 degrees Fahrenheit axillary on the first postoperative day. Pulse was 100. White blood cell count was 15,900 with 4 bands. Hemoglobin was 14.1. Hematocrit was 40.7. KUB and upright abdominal x-rays were performed on the first postoperative day. They did show dilated small bowel loops in the central abdomen with air-fluid levels. The small bowel dilation was up to 4.2 cm in diameter. There was also gas throughout the colon all the way down to the level of the rectum. The impression by the radiologist was that the patient had dilated small bowel which could represent ileus or partial small-bowel obstruction. Intravenous Invanz was continued. Sequential compression devices were continued. Ambulation of the patient was encouraged. The patient was kept on a clear liquid diet with toast and crackers yet at this time. The patient was also started on Lovenox at this time for deep venous thrombosis prophylaxis. On the second postoperative day, the patient was tolerating the clear liquid diet with toast and crackers in larger amounts. The patient had a large bowel movement on the second postoperative day. He was having no nausea or vomiting. His postoperative incisional pain was improving. He did continue to receive intravenous Invanz. The patient was now afebrile. All the abdominal incisions looked good. White blood cell count was 11,900 with no bands. The patient did have KUB and upright abdominal x-rays performed on the morning of the second postoperative day. These x-rays did show dilated small bowel loops in the central abdomen measuring up to 5 cm in diameter with some scattered colon gas. The overall degree of small bowel dilation was somewhat similar to the appearance on KUB and upright abdominal x-rays performed on the previous day. Air-fluid levels were decreased. The radiologist thought that the findings were most consistent with postoperative ileus. Because of the preoperative CT scan findings of partial small-bowel obstruction, the patient did undergo a small bowel follow-through x-ray series on the second postoperative day. The small bowel follow-through x-ray series did show very rapid intestinal transit. The oral contrast did reach the level of the rectum by 30 minutes after administration. There was no evidence of any small-bowel obstruction on the small bowel follow-through x-rays. There was also no evidence of any ileus on the small bowel follow-through x-rays. It was thought at this time that the patient did not have any partial small-bowel obstruction. Intravenous Invanz was continued. Diet was advanced as tolerated. Ambulation was continued. Lovenox and sequential compression devices were continued for deep venous thrombosis prophylaxis. The rate of administration of intravenous fluids was decreased. On the third postoperative day, the patient was tolerating a regular diet. He was up ambulating well. He was using ibuprofen for pain control. He was receiving intravenous Invanz. He was doing well overall. The patient was afebrile. White blood cell count was 8900 with no bands on the third postoperative day. The patient appeared to be doing well overall. He was dismissed from [facility] on the third postoperative day in stable condition. A pathology report was later returned on the gallbladder specimen submitted at the time of the operation performed on 07/15/2017. Pathology report diagnosis on the gallbladder was acute and chronic cholecystitis. The pathologist did state that no stone was identified in the gallbladder. DISCHARGE MEDICATIONS 1. Lisinopril 40 mg one p.o. daily. 2. Effexor 75 mg one p.o. daily. 3. Ibuprofen 200 mg two to four tablets p.o. every six hours p.r.n. pain. 4. Tylenol 325 mg one to two tablets p.o. every five hours p.r.n. pain. DISCHARGE DISPOSITION Followup office visit with Dr. Barriga at the office one week following discharge from the hospital. MANNIE
== END 2017-07-18 12:15 | disposition home or self-care (01) | DRG 419 ==
LOC: ED 15:59 → EDHOLD 19:37 → SRG 20:15
PROVIDERS: ADMIT Surgery; ATTEND Surgery